=== PATIENT | male | born 1950 | race Caucasian/White ===

== ENCOUNTER → 2019-08-09 | Day surgery (SDC) | payer MEDICARE, OTHER ==
[~2019-08-09] MED LIST: ACETAMINOPHEN 325 MG TABLET PO PRN; ALBUTEROL SULFATE 2.5 MG/3 ML NEBU. NEB PRN; ATROPINE 0.5 MG/5 ML DISP.SYRIN. IV PRN; GLYCOPYRROLATE 1 MG/5 ML VIAL. ONE; METO25TA2 PO; METOPROLOL TARTRATE 5 MG/5 ML VIAL. IV ONE; ONDANSETRON PF 4 MG/2 ML VIAL. IV PRN; PHENOL ORAL SPRAY 177ML BOTTLE. MM PRN; PROPOFOL 40 ML IV ONE; SIMV20TA18 PO; TAMS0.4C97 PO; diphenhydrAMINE 50 MG/ML VIAL IV PRN
[2019-08-09] MEDS: IV RINGERS SOLUTION,LACTATED 1,000 ML IV SCH (07:14)
[2019-08-09 08:13] VITALS: BP 126/81
--- NOTE | 2019-08-10 17:10 | PATHOLOGY ---
[facility] Accession Number: [id number] . 01 Material submitted: . PART A: cecum - CECAL POLYP PART B: colon - TRANSVERSE POLYP. Modifiers: transverse PART C: sigmoid colon - SIGMOID POLYP . 01 Clinical history: . None provided . 02 Diagnosis: A. Colon biopsy, cecal polyp: - Tubular adenoma. . B. Colon biopsies, transverse colon polyp: - Tubular adenoma. . C. Colon biopsies, sigmoid polyp: - Tubular adenoma ([facility] 08/10/2019) [facility] 08/10/2019 1634 Local . 02 Comment: There is no high-grade dysplasia or evidence of malignancy. ([facility] 08/10/2019) . 02 Electronically signed: . Jose Alfredo Valdes MD, Pathologist NPI- [id number] . 01 Gross description: . A. The specimen is received in formalin, labeled "Glenroy Greczyn, cecal polyp". Received is a segment of pale crowell soft tissue measuring 0.3 cm in maximum dimensions. The specimen is submitted entirely in cassette A1. . B. The specimen is received in formalin, labeled "Glenroy Greczyn, transverse polyp". Received is a segment of pale crowell soft tissue measuring 0.4 cm in maximum dimensions. The specimen is submitted entirely in cassette B1. . C. The specimen is received in formalin, labeled "Glenroy Greczyn, sigmoid polyp". Received are three segments of pale crowell soft tissue measuring up to 0.3 cm in maximum dimensions. The specimen is submitted entirely in cassette C1. ([facility]; 08/09/2019) QAC/QAC 08/10/2019 1337 Local . 02 Pathologist provided ICD-10: D12.0, D12.3, D12.5 . 02 CPT . 901500, 592909, 819103 Specimen Comment: A courtesy copy of this report has been sent to [phone], [phone] Specimen Comment: [id number] Specimen Comment: Report sent to / DR MIGUEL Performed at: [address] [facility], [place] [id number] MD Jose Riddle MD Phone: [phone] [facility]formed at: [facility] [address] [place], [place] [id number] MD Jose Alfredo Valdes MD Phone: [phone]
== END | disposition home or self-care (01) ==
LOC: SURG 05:55
PROVIDERS: ATTEND Emergency Medicine
DX: Z12.11 Encounter for screening for malignant neoplasm of colon (principal); K63.89 Other specified diseases of intestine; D12.3 Benign neoplasm of transverse colon; D12.0 Benign neoplasm of cecum; D12.5 Benign neoplasm of sigmoid colon; I10 Essential (primary) hypertension; M19.90 Unspecified osteoarthritis, unspecified site; E66.9 Obesity, unspecified; E78.00 Pure hypercholesterolemia, unspecified; J45.909 Unspecified asthma, uncomplicated; Z96.643 Presence of artificial hip joint, bilateral; Z85.46 Personal history of malignant neoplasm of prostate; Z88.1 Allergy status to other antibiotic agents; Z88.8 Allergy status to other drugs, medicaments and biological substances; Z98.890 Other specified postprocedural states; Z68.27 Body mass index [BMI] 27.0-27.9, adult; Z88.0 Allergy status to penicillin; Z79.899 Other long term (current) drug therapy
CPT/HCPCS: 45380; 88305; J2704; J3490; J7120